=== PATIENT | male | born 1950 | race Caucasian/White ===

== ENCOUNTER 2017-01-10 21:07 | Emergency (ER) | payer OTHER ==
[~2017-01-10] VITALS: Ht 193 cm; Wt 103.9 kg
[2017-01-10] MEDS ORDERED: DIPH,PERTUSS(ACELL),TET VAC/PF 0.5 ML IM-VACC ONE ×2 (21:47→22:00)
[2017-01-10] MEDS ORDERED: LIDOCAINE 1%, 20ML ONE (21:47)
[2017-01-10] MEDS ORDERED: LIDOCAINE 1%, 20ML INFIL ONE (22:00)
[2017-01-10] MEDS ORDERED: BACITRACIN ZINC OINT 500U/GM, 0.9 GM ONE (22:07)
[2017-01-10 22:44] VITALS: BP 143/86
== END 2017-01-10 22:48 | disposition home or self-care (01) ==
LOC: ED 22:30
DX: S81.012A Laceration without foreign body, left knee, initial encounter (principal); V19.9XXA Pedal cyclist (driver) (passenger) injured in unspecified traffic accident, initial encounter; Y93.55 Activity, bike riding; Y92.410 Unspecified street and highway as the place of occurrence of the external cause; Y99.8 Other external cause status
CPT/HCPCS: 12032; 73564; 90471; 90715; 99284; J3490

== ENCOUNTER 2020-01-03 21:36 | Inpatient (IN) | payer MEDICARE, OTHER ==
[~2020-01-03] VITALS: Ht 193 cm; Wt 124.5 kg
[2020-01-03 22:42] LABS: MICROSCOPIC INDICATED
--- NOTE | 2020-01-03 22:49 | NUR ---
pt reports coming into ed for painful urination. denies flank pain, states it phipps when he urinates, wakes him out of sleep, pt reports difficulty urinating this past week since this started. denies abdominal pain, NAD, gross neuro intact. pt states "its almost like im on fire down there" pt placed on spo2/bp monitoring. wctm, waiting ua results.
--- NOTE | 2020-01-03 23:11 | NUR ---
PT TO US VIA [facility]. NAD, NO CHANGE IN CONDITION, WCTM.
[2020-01-03 23:26] LABS: ALBUMIN 2.6 g/dL (3.4-5.0); ANION GAP 18 mmol/L (5-15); CALCIUM 8.4 mg/dL (8.5-10.1); CHLORIDE 92 mmol/L (98-107)
[2020-01-03 23:30] LABS: ALANINE AMINOTRANSFERASE 44 U/L (12-78); ALKALINE PHOSPHATASE 129 U/L (45-117); BILIRUBIN,TOTAL 0.9 mg/dL (0.2-1.0); TOTAL PROTEIN 7.9 g/dL (6.4-8.2)
[2020-01-04 00:09] LABS: MEAN PLATELET VOLUME 12.4 fL (7.4-10.4)
--- NOTE | 2020-01-04 00:15 | NUR ---
late entry d/t pt care: pt resting in gurney, appears comfortable, nad, denies additional needs at this time. call light on lap, wctm. pt to be admitted.
[2020-01-04 00:16] LABS: MEAN CORPUSCULAR HGB CONC 33.5 g/dL (33.2-36.2); PLATELET COUNT 252 x10^3/uL (130-400); RED BLOOD COUNT 4.47 x10^6/uL (4.38-5.82); RED CELL DISTRIBUTION WIDTH 15.2 % (9.4-14.8)
[2020-01-04] MEDS ORDERED: HEPARIN 5,000 UNITS/ML, 1ML SQ SCH (00:30)
[2020-01-04] MEDS ORDERED: VANCOMYCIN PER PHARMACY MC PRN (00:30)
[2020-01-04] MEDS ORDERED: SODIUM CHLORIDE FLUSH 10ML SYR IVF ONE ×2 (00:30)
[2020-01-04] MEDS ORDERED: CEFTRIAXONE PMX 1GM/50ML 50 ML IV SCH (00:30)
[2020-01-04] MEDS ORDERED: BISACODYL 10 MG SUPP PR PRN (00:30)
[2020-01-04] MEDS ORDERED: ONDANSETRON ODT 4 MG PO PRN (00:30)
[2020-01-04] MEDS ORDERED: morphine SULFATE 10 MG/ML, 1ML IVPush PRN (00:30)
[2020-01-04] MEDS ORDERED: CEFTRIAXONE PMX 1GM/50ML 50 ML IVPB ONE (00:30)
[2020-01-04] MEDS ORDERED: SODIUM CHLORIDE 0.9% 1,000ML IVBOLUS ONE (00:30)
[2020-01-04] MEDS ORDERED: VANCOMYCIN PMX 1GM/200ML 200 ML IV ONE ×2 (00:30→03:00)
[2020-01-04] MEDS ORDERED: VANCOMYCIN PER PHARMACY MC ONE (00:30)
[2020-01-04] MEDS ORDERED: SODIUM CHLORIDE 0.9% 1,000 ML IV SCH (00:30)
[2020-01-04] MEDS ORDERED: POLYETHYLENE GLYCOL 17 GM PACKET PO PRN (00:30)
[2020-01-04] MEDS ORDERED: HEPARIN 5,000 UNITS/ML, 1ML ONE (00:34)
[2020-01-04] MEDS ORDERED: CEFTRIAXONE PMX 1GM/50ML 50 ML ONE (00:34)
[2020-01-04 00:35] LABS: MD YES
[2020-01-04 00:39] LABS: BAND#(MANUAL) 1.33 x10^3/uL; BANDS%(MANUAL) 4 % (0-7); LYMPH#(MANUAL) 1.66 x10^3/uL (1-3.4); LYMPHS% (MANUAL) 5 % (22-44); MONOS#(MANUAL) 1.99 x10^3/uL (0.3-2.7); MONOS% (MANUAL) 6 % (2-9); SEG#(MANUAL) 28.22 x10^3/uL (1.8-6.8); SEGS% (MANUAL) 85 % (42-75)
[2020-01-04 00:40] LABS: ANISOCYTOSIS 1+
[2020-01-04 00:41] LABS: <PLATELET ESTIMATE> ADEQUATE; TOXIC GRAN 2+
[2020-01-04 00:42] LABS: GIANT PLATELETS 1+; LARGE PLATELETS 1+
--- NOTE | 2020-01-04 00:42 | NUR ---
pt to us via [facility], no change in condition.
[2020-01-04 01:22] LABS: CHLORIDE,URINE RANDOM 26 mmol/L; POTASSIUM,URINE RANDOM 15 mmol/L; SODIUM,URINE RANDOM 40 mmol/L
--- NOTE | 2020-01-04 01:40 | NUR ---
LATE ENTRY: PT POLI, RESTING ON POLI MCRAE, TO BE ADMITTED. WCTM.
--- NOTE | 2020-01-04 02:10 | NUR ---
THIS RN CALLED HEENA HENRIQUEZ TO UPDATE ON PT, PT TO BE TRANSFERRED TO FLOOR, NAD, DENIES ADDITIONAL NEEDS AT THIS TIME. WCTM.
[2020-01-04 02:31] VITALS: BP 145/74
[2020-01-04] MEDS ORDERED: PHARMACOKINETIC MONITORING MC PRN (03:00)
[2020-01-04 03:43] VITALS: BP 135/74
[2020-01-04 06:04] LABS: ANION GAP 19 mmol/L (5-15); CALCIUM 8.2 mg/dL (8.5-10.1); CHLORIDE 95 mmol/L (98-107); CREATININE 3.52 mg/dL (0.7-1.3); MEAN CORPUSCULAR HEMOGLOBIN 31.2 pg (27.5-34.5); MEAN CORPUSCULAR HGB CONC 33.3 g/dL (33.2-36.2); MEAN PLATELET VOLUME 10.2 fL (7.4-10.4); PLATELET COUNT 274 x10^3/uL (130-400); RED BLOOD COUNT 4.57 x10^6/uL (4.38-5.82); RED CELL DISTRIBUTION WIDTH 15.5 % (9.4-14.8)
[2020-01-04 06:35] LABS: MD YES
[2020-01-04 06:36] LABS: ANISOCYTOSIS 1+; BANDS%(MANUAL) 5 % (0-7); LYMPH#(MANUAL) 1.44 x10^3/uL (1-3.4); LYMPHS% (MANUAL) 6 % (22-44); MONOS#(MANUAL) 0.72 x10^3/uL (0.3-2.7); MONOS% (MANUAL) 3 % (2-9); MYELOCYTES# (MANUAL) 0.24 x10^3/uL (0-0); MYELOCYTES% (MANUAL) 1 % (0-0); SEGS% (MANUAL) 85 % (42-75)
[2020-01-04 06:37] LABS: PMNS WITH VACUOLES 1+; TOXIC GRAN 2+
[2020-01-04 06:47] LABS: <PLATELET ESTIMATE> ADEQUATE; LARGE PLATELETS 1+
[2020-01-04 08:00] VITALS: BP 110/74
[2020-01-04] MEDS: SENNA/DOCUSATE TABLET PO SCH (09:00)
[2020-01-04] MEDS: CEFTRIAXONE PMX 2GM/50ML 50 ML IV SCH (09:31)
[2020-01-04 14:00] VITALS: BP 131/62
[2020-01-04 20:08] VITALS: BP 134/69
[2020-01-04 20:22] VITALS: BP 120/66
[2020-01-04 22:32] LABS: OSMOLALITY,URINE 284 mOsm/kg (500-850)
[2020-01-05 01:31] VITALS: BP 144/73
[2020-01-05] MEDS: ACETAMINOPHEN 325 MG TABLET PO PRN ×2 (02:27→20:51)
[2020-01-05] MEDS: SODIUM CHLORIDE 0.9% 1,000 ML IV SCH ×2 (03:28→20:52)
[2020-01-05 05:41] LABS: ANION GAP 13 mmol/L (5-15); CALCIUM 7.7 mg/dL (8.5-10.1); CHLORIDE 104 mmol/L (98-107)
[2020-01-05 05:46] LABS: CREATININE 2.36 mg/dL (0.7-1.3); VANCOMYCIN,RANDOM 5.5 mcg/mL
[2020-01-05 06:12] LABS: MEAN CORPUSCULAR HEMOGLOBIN 30.7 pg (27.5-34.5); MEAN CORPUSCULAR HGB CONC 32.8 g/dL (33.2-36.2); MEAN PLATELET VOLUME 12.3 fL (7.4-10.4); PLATELET COUNT 234 x10^3/uL (130-400); RED BLOOD COUNT 4.05 x10^6/uL (4.38-5.82); RED CELL DISTRIBUTION WIDTH 15.5 % (9.4-14.8)
[2020-01-05 06:13] LABS: MD YES
[2020-01-05 06:15] LABS: BAND#(MANUAL) 0.22 x10^3/uL; BANDS%(MANUAL) 1 % (0-7); EOS#(MANUAL) 0.22 x10^3/uL (0.0-0.4); EOS% (MANUAL) 1 % (1-7); LYMPH#(MANUAL) 0.88 x10^3/uL (1-3.4); LYMPHS% (MANUAL) 4 % (22-44); MONOS#(MANUAL) 1.11 x10^3/uL (0.3-2.7); MONOS% (MANUAL) 5 % (2-9); MYELOCYTES# (MANUAL) 0.22 x10^3/uL (0-0); MYELOCYTES% (MANUAL) 1 % (0-0); SEG#(MANUAL) 19.45 x10^3/uL (1.8-6.8); SEGS% (MANUAL) 88 % (42-75)
[2020-01-05 06:16] LABS: ANISOCYTOSIS 1+; LARGE PLATELETS 1+; PMNS WITH VACUOLES 1+; TOXIC GRAN 1+
[2020-01-05 06:17] LABS: <PLATELET ESTIMATE> ADEQUATE; GIANT PLATELETS 1+
[2020-01-05] MEDS ORDERED: VANCOMYCIN 2,000 MG in SODIUM CHLORIDE 0.9% 500 ML IV ONE (06:30)
[2020-01-05] MEDS ORDERED: POTASSIUM CHLORIDE 20 MEQ TAB.ER.PRT PO ONE (07:00)
[2020-01-05 07:15] VITALS: BP 116/73
[2020-01-05] MEDS: SODIUM BICARBONATE 650 MG TABLET PO SCH ×2 (08:21→20:45)
[2020-01-05] MEDS: SENNA/DOCUSATE TABLET PO SCH (08:21)
[2020-01-05] MEDS: CEFTRIAXONE PMX 2GM/50ML 50 ML IV SCH (09:12)
[2020-01-05 13:03] VITALS: BP 129/70
[2020-01-05] MEDS ORDERED: NALOXONE 1 MG/ML, 2ML ONE (14:40)
[2020-01-05] MEDS ORDERED: FENTANYL PF 100 MCG/2ML ONE (14:40)
[2020-01-05] MEDS ORDERED: LIDOCAINE 1%, 10ML ONE ×2 (14:42→15:33)
[2020-01-05] MEDS ORDERED: VISIPAQUE 270 MG/ML, 50ML BOTTLE ONE (15:41)
[2020-01-05 20:42] VITALS: BP 130/70
[2020-01-05 21:35] VITALS: BP 129/73
[2020-01-06 00:03] VITALS: BP 121/71
[2020-01-06 06:14] LABS: CHLORIDE 108 mmol/L (98-107)
[2020-01-06 06:20] LABS: MEAN CORPUSCULAR HEMOGLOBIN 30.8 pg (27.5-34.5); MEAN PLATELET VOLUME 11.2 fL (7.4-10.4); PLATELET COUNT 282 x10^3/uL (130-400); RED BLOOD COUNT 4.38 x10^6/uL (4.38-5.82); RED CELL DISTRIBUTION WIDTH 15.5 % (9.4-14.8)
[2020-01-06 06:25] LABS: ANION GAP 11 mmol/L (5-15); CREATININE 1.89 mg/dL (0.7-1.3); VANCOMYCIN,TROUGH 14.2 mcg/mL (5.0-10.0)
[2020-01-06 06:57] LABS: BASOPHILS # (AUTO) 0.02 x10^3/uL (0-0.1); BASOPHILS % (AUTO) 0 % (0-1); EOSINOPHILS # (AUTO) 0.06 x10^3/uL (0-0.4); EOSINOPHILS % (AUTO) 0 % (1-7); LYMPHOCYTES # (AUTO) 1.02 x10^3/uL (1-3.4); LYMPHOCYTES % (AUTO) 5 % (22-44); MD SCAN; MONOCYTES # (AUTO) 1.06 x10^3/uL (0.2-0.8); MONOCYTES % (AUTO) 5 % (2-9); NEUTROPHILS # (AUTO) 17.51 x10^3/uL (1.8-6.8); NEUTROPHILS % (AUTO) 89 % (42-75)
[2020-01-06 07:42] VITALS: BP 128/78
[2020-01-06] MEDS: SENNA/DOCUSATE TABLET PO SCH (07:58)
[2020-01-06] MEDS: ACETAMINOPHEN 325 MG TABLET PO PRN ×3 (07:58→21:15)
[2020-01-06] MEDS: SODIUM BICARBONATE 650 MG TABLET PO SCH ×2 (07:59→20:33)
[2020-01-06] MEDS: CEFTRIAXONE PMX 2GM/50ML 50 ML IV SCH (09:39)
[2020-01-06] MEDS: SODIUM CHLORIDE 0.9% 1,000 ML IV SCH (09:39)
[2020-01-06] MEDS: VANCOMYCIN 2,000 MG in SODIUM CHLORIDE 0.9% 500 ML IV SCH (10:44)
[2020-01-06 13:57] VITALS: BP 126/68
[2020-01-06 19:32] VITALS: BP 145/75
[2020-01-07] MEDS: SODIUM CHLORIDE 0.9% 1,000 ML IV SCH ×2 (01:28→23:52)
[2020-01-07 01:52] VITALS: BP 155/70
[2020-01-07 06:29] LABS: MEAN CORPUSCULAR HEMOGLOBIN 31.1 pg (27.5-34.5); MEAN CORPUSCULAR HGB CONC 33.4 g/dL (33.2-36.2); MEAN PLATELET VOLUME 10.6 fL (7.4-10.4); PLATELET COUNT 308 x10^3/uL (130-400); RED BLOOD COUNT 4.25 x10^6/uL (4.38-5.82); RED CELL DISTRIBUTION WIDTH 15.8 % (9.4-14.8)
[2020-01-07 06:49] LABS: CHLORIDE 112 mmol/L (98-107)
[2020-01-07 06:56] LABS: BASOPHILS # (AUTO) 0.06 x10^3/uL (0-0.1); BASOPHILS % (AUTO) 0 % (0-1); EOSINOPHILS # (AUTO) 0.13 x10^3/uL (0-0.4); EOSINOPHILS % (AUTO) 1 % (1-7); LYMPHOCYTES # (AUTO) 1.31 x10^3/uL (1-3.4); LYMPHOCYTES % (AUTO) 8 % (22-44); MD SCAN; MONOCYTES # (AUTO) 0.99 x10^3/uL (0.2-0.8); MONOCYTES % (AUTO) 6 % (2-9); NEUTROPHILS # (AUTO) 14.01 x10^3/uL (1.8-6.8); NEUTROPHILS % (AUTO) 85 % (42-75)
[2020-01-07 06:58] LABS: ANION GAP 8 mmol/L (5-15); CALCIUM 7.9 mg/dL (8.5-10.1); CREATININE 1.61 mg/dL (0.7-1.3)
[2020-01-07 08:35] VITALS: BP 127/68
[2020-01-07] MEDS: CEFTRIAXONE PMX 2GM/50ML 50 ML IV SCH (09:24)
[2020-01-07] MEDS: SODIUM BICARBONATE 650 MG TABLET PO SCH ×2 (09:25→20:19)
[2020-01-07] MEDS: SENNA/DOCUSATE TABLET PO SCH (09:25)
[2020-01-07] MEDS: VANCOMYCIN 2,000 MG in SODIUM CHLORIDE 0.9% 500 ML IV SCH (12:54)
[2020-01-07 13:50] VITALS: BP 146/73
[2020-01-07 19:55] VITALS: BP 172/104
[2020-01-07 19:57] VITALS: BP 151/73
[2020-01-07] MEDS ORDERED: MELATONIN 5 MG TABLET PO PRN (22:00)
[2020-01-08 00:11] VITALS: BP 128/68
[2020-01-08 06:19] LABS: MEAN CORPUSCULAR HEMOGLOBIN 30.7 pg (27.5-34.5); MEAN CORPUSCULAR HGB CONC 32.6 g/dL (33.2-36.2); MEAN PLATELET VOLUME 10.5 fL (7.4-10.4); PLATELET COUNT 295 x10^3/uL (130-400); RED BLOOD COUNT 4.11 x10^6/uL (4.38-5.82); RED CELL DISTRIBUTION WIDTH 15.7 % (9.4-14.8)
[2020-01-08 06:23] LABS: ANION GAP 9 mmol/L (5-15); CHLORIDE 115 mmol/L (98-107); CREATININE 1.38 mg/dL (0.7-1.3)
[2020-01-08 06:44] LABS: BASOPHILS # (AUTO) 0.02 x10^3/uL (0-0.1); BASOPHILS % (AUTO) 0 % (0-1); EOSINOPHILS # (AUTO) 0.09 x10^3/uL (0-0.4); EOSINOPHILS % (AUTO) 1 % (1-7); LYMPHOCYTES # (AUTO) 1.58 x10^3/uL (1-3.4); LYMPHOCYTES % (AUTO) 10 % (22-44); MD SCAN; MONOCYTES % (AUTO) 7 % (2-9); NEUTROPHILS # (AUTO) 12.73 x10^3/uL (1.8-6.8); NEUTROPHILS % (AUTO) 83 % (42-75)
[2020-01-08 08:00] VITALS: BP 146/72
[2020-01-08] MEDS: CEFTRIAXONE PMX 2GM/50ML 50 ML IV SCH (08:00)
[2020-01-08] MEDS: AMLODIPINE 5 MG TABLET PO SCH (08:01)
[2020-01-08] MEDS: SENNA/DOCUSATE TABLET PO SCH (08:01)
[2020-01-08] MEDS: SODIUM BICARBONATE 650 MG TABLET PO SCH ×2 (08:01→20:31)
[2020-01-08] MEDS ORDERED: MAGNESIUM HYDROXIDE 8%, 30ML UDC ONE (09:08)
[2020-01-08 09:55] VITALS: BP 146/64
[2020-01-08] MEDS: VANCOMYCIN 2,000 MG in SODIUM CHLORIDE 0.9% 500 ML IV SCH (12:25)
[2020-01-08] MEDS ORDERED: CHLORHEXIDINE 15 ML UDC MM ONE (14:30)
[2020-01-08] MEDS ORDERED: HYDROmorphone 1 MG/ML, 1ML INJ IVPush PRN (15:00)
[2020-01-08] MEDS ORDERED: hydrALAzine 20 MG/ML, 1ML IV PRN (15:00)
[2020-01-08] MEDS ORDERED: MEPERIDINE/PF 25MG/0.5ML IVPush PRN (15:00)
[2020-01-08] MEDS ORDERED: OXYcodone 5 MG/5 ML ORAL.SOL UDC PO PRN (15:00)
[2020-01-08] MEDS ORDERED: LABETALOL 5MG/ML, 20ML IV PRN (15:00)
[2020-01-08] MEDS ORDERED: FENTANYL PF 100 MCG/2ML IV PRN (15:00)
[2020-01-08] MEDS ORDERED: HALOPERIDOL 5 MG/ML IV PRN (15:00)
[2020-01-08] MEDS ORDERED: PROMETHAZINE 25 MG/ML, 1ML IVPush PRN (15:00)
[2020-01-08] MEDS ORDERED: FENTANYL PF 250 MCG/5ML ONE (15:01)
[2020-01-08] MEDS ORDERED: ROCURONIUM 10MG/ML,5ML ONE (16:06)
[2020-01-08] MEDS ORDERED: SUCCINYLCHOLINE 20 MG/ML, 10ML ONE (16:06)
[2020-01-08] MEDS ORDERED: DEXAMETHASONE 4 MG/ML, 1ML ONE (16:06)
[2020-01-08] MEDS ORDERED: PROPOFOL 10 MG/ML, 20ML ONE (16:06)
[2020-01-08] MEDS ORDERED: GLYCOPYRROLATE 0.2MG/1ML, 5ML ONE (16:06)
[2020-01-08] MEDS ORDERED: ONDANSETRON 2MG/ML, 2ML ONE (16:06)
[2020-01-08] MEDS ORDERED: CEFAZOLIN 1,000 MG ONE (16:06)
[2020-01-08] MEDS ORDERED: NEOSTIGMINE 1 MG/ML, 10ML ONE ×2 (16:06→16:07)
[2020-01-08] MEDS ORDERED: FENTANYL PF 100 MCG/2ML ONE (16:12)
[2020-01-08] MEDS: SODIUM CHLORIDE 0.9% 1,000 ML IV SCH (17:20)
[2020-01-08 20:47] VITALS: BP 136/72
[2020-01-09 00:21] VITALS: BP 137/64
[2020-01-09] MEDS: SODIUM CHLORIDE 0.9% 1,000 ML IV SCH ×3 (02:10→19:43)
[2020-01-09 03:59] VITALS: BP 152/69
[2020-01-09 05:51] LABS: MEAN CORPUSCULAR HEMOGLOBIN 30.3 pg (27.5-34.5); MEAN CORPUSCULAR HGB CONC 31.8 g/dL (33.2-36.2); MEAN PLATELET VOLUME 11.2 fL (7.4-10.4); PLATELET COUNT 327 x10^3/uL (130-400); RED BLOOD COUNT 3.95 x10^6/uL (4.38-5.82); RED CELL DISTRIBUTION WIDTH 16.2 % (9.4-14.8)
[2020-01-09 06:12] LABS: ANION GAP 8 mmol/L (5-15); CALCIUM 7.9 mg/dL (8.5-10.1); CHLORIDE 114 mmol/L (98-107)
[2020-01-09 06:14] LABS: CREATININE 1.23 mg/dL (0.7-1.3)
[2020-01-09 06:43] LABS: BASOPHILS # (AUTO) 0.09 x10^3/uL (0-0.1); BASOPHILS % (AUTO) 1 % (0-1); EOSINOPHILS # (AUTO) 0.05 x10^3/uL (0-0.4); EOSINOPHILS % (AUTO) 0 % (1-7); LYMPHOCYTES # (AUTO) 1.57 x10^3/uL (1-3.4); LYMPHOCYTES % (AUTO) 9 % (22-44); MD SCAN; MONOCYTES # (AUTO) 1.13 x10^3/uL (0.2-0.8); MONOCYTES % (AUTO) 6 % (2-9); NEUTROPHILS # (AUTO) 14.69 x10^3/uL (1.8-6.8); NEUTROPHILS % (AUTO) 84 % (42-75)
[2020-01-09 07:55] VITALS: BP 143/68
[2020-01-09] MEDS: SODIUM BICARBONATE 650 MG TABLET PO SCH ×2 (09:00→21:25)
[2020-01-09] MEDS: AMLODIPINE 5 MG TABLET PO SCH (09:46)
[2020-01-09] MEDS: CEFTRIAXONE PMX 2GM/50ML 50 ML IV SCH (09:46)
[2020-01-09] MEDS: SENNA/DOCUSATE TABLET PO SCH (09:46)
[2020-01-09] MEDS: VANCOMYCIN 2,000 MG in SODIUM CHLORIDE 0.9% 500 ML IV SCH (12:30)
[2020-01-09 13:12] VITALS: BP 127/72
[2020-01-09] MEDS ORDERED: VISIPAQUE 270 MG/ML, 50ML BOTTLE ONE (14:15)
[2020-01-09 20:00] VITALS: BP 136/65
[2020-01-10] MEDS: ACETAMINOPHEN 325 MG TABLET PO PRN ×2 (02:00→08:55)
[2020-01-10 04:00] VITALS: BP 104/65
[2020-01-10 05:35] LABS: BASOPHILS # (AUTO) 0.15 x10^3/uL (0-0.1); BASOPHILS % (AUTO) 1 % (0-1); EOSINOPHILS # (AUTO) 0.13 x10^3/uL (0-0.4); EOSINOPHILS % (AUTO) 1 % (1-7); LYMPHOCYTES # (AUTO) 1.45 x10^3/uL (1-3.4); LYMPHOCYTES % (AUTO) 12 % (22-44); MD NO; MEAN CORPUSCULAR HGB CONC 33.3 g/dL (33.2-36.2); MEAN PLATELET VOLUME 10.4 fL (7.4-10.4); MONOCYTES # (AUTO) 0.69 x10^3/uL (0.2-0.8); MONOCYTES % (AUTO) 6 % (2-9); NEUTROPHILS % (AUTO) 80 % (42-75); PLATELET COUNT 296 x10^3/uL (130-400); RED BLOOD COUNT 3.69 x10^6/uL (4.38-5.82); RED CELL DISTRIBUTION WIDTH 15.1 % (9.4-14.8)
[2020-01-10 05:40] LABS: CHLORIDE 118 mmol/L (98-107)
[2020-01-10 05:44] LABS: ANION GAP 7 mmol/L (5-15); CALCIUM 8.1 mg/dL (8.5-10.1); CREATININE 1.26 mg/dL (0.7-1.3)
[2020-01-10 08:03] VITALS: BP 120/62
[2020-01-10] MEDS: SODIUM BICARBONATE 650 MG TABLET PO SCH ×2 (08:51→21:34)
[2020-01-10] MEDS: SENNA/DOCUSATE TABLET PO SCH (08:55)
[2020-01-10] MEDS: AMLODIPINE 5 MG TABLET PO SCH (08:56)
[2020-01-10] MEDS: CEFTRIAXONE PMX 2GM/50ML 50 ML IV SCH (08:56)
[2020-01-10] MEDS: VANCOMYCIN 2,000 MG in SODIUM CHLORIDE 0.9% 500 ML IV SCH (12:27)
[2020-01-10 14:06] VITALS: BP 126/68
[2020-01-10] MEDS: SODIUM CHLORIDE 0.9% 1,000 ML IV SCH (17:44)
[2020-01-10] MEDS ORDERED: LIDOCAINE 1%, 10ML ONE (18:53)
[2020-01-10 20:26] VITALS: BP 127/69
[2020-01-11 00:34] VITALS: BP 152/76
[2020-01-11 06:53] LABS: BASOPHILS % (AUTO) 1 % (0-1); EOSINOPHILS # (AUTO) 0.07 x10^3/uL (0-0.4); EOSINOPHILS % (AUTO) 1 % (1-7); LYMPHOCYTES # (AUTO) 1.11 x10^3/uL (1-3.4); LYMPHOCYTES % (AUTO) 11 % (22-44); MD NO; MEAN CORPUSCULAR HEMOGLOBIN 30.8 pg (27.5-34.5); MEAN CORPUSCULAR HGB CONC 32.4 g/dL (33.2-36.2); MONOCYTES # (AUTO) 0.56 x10^3/uL (0.2-0.8); MONOCYTES % (AUTO) 6 % (2-9); NEUTROPHILS # (AUTO) 7.94 x10^3/uL (1.8-6.8); NEUTROPHILS % (AUTO) 81 % (42-75); PLATELET COUNT 358 x10^3/uL (130-400); RED BLOOD COUNT 3.88 x10^6/uL (4.38-5.82); RED CELL DISTRIBUTION WIDTH 15.2 % (9.4-14.8)
[2020-01-11 07:27] VITALS: BP 136/76
[2020-01-11] MEDS: CEFAZOLIN PMX 1GM/50ML 50 ML IV SCH ×3 (08:51→23:01)
[2020-01-11] MEDS: SODIUM BICARBONATE 650 MG TABLET PO SCH (09:00)
[2020-01-11] MEDS: SENNA/DOCUSATE TABLET PO SCH (09:00)
[2020-01-11] MEDS: AMLODIPINE 5 MG TABLET PO SCH (11:20)
[2020-01-11] MEDS ORDERED: LIDOCAINE 1%, 20ML ONE (12:12)
[2020-01-11] MEDS ORDERED: FENTANYL PF 100 MCG/2ML ONE (12:16)
[2020-01-11] MEDS ORDERED: FLUMAZENIL 0.1 MG/1 ML, 5ML ONE (12:16)
[2020-01-11] MEDS ORDERED: MIDAZOLAM 1 MG/ML, 5ML ONE (12:16)
[2020-01-11] MEDS ORDERED: NALOXONE 1 MG/ML, 2ML ONE (12:17)
[2020-01-11 13:20] VITALS: BP 132/58
[2020-01-11] MEDS: SODIUM CHLORIDE 0.9% 1,000 ML IV SCH ×2 (14:08→23:01)
[2020-01-11 18:30] VITALS: BP 108/61
[2020-01-12 01:16] VITALS: BP 127/69
[2020-01-12] MEDS: CEFAZOLIN PMX 1GM/50ML 50 ML IV SCH (06:42)
[2020-01-12 09:00] VITALS: BP 101/59
[2020-01-12] MEDS: AMLODIPINE 5 MG TABLET PO SCH (09:00)
[2020-01-12] MEDS: SODIUM CHLORIDE 0.9% 1,000 ML IV SCH (11:58)
[2020-01-12] MEDS: CEFTRIAXONE PMX 2GM/50ML 50 ML IV SCH (11:59)
[2020-01-12 13:40] VITALS: BP 116/51
[2020-01-12] MEDS: SENNA/DOCUSATE TABLET PO SCH (18:40)
[2020-01-12 20:05] VITALS: BP 152/82
[2020-01-13 01:47] VITALS: BP 149/71
[2020-01-13 07:21] VITALS: BP 153/66
[2020-01-13] MEDS: AMLODIPINE 5 MG TABLET PO SCH (07:57)
[2020-01-13] MEDS: SENNA/DOCUSATE TABLET PO SCH (07:57)
[2020-01-13] MEDS ORDERED: AMLODIPINE 5 MG TABLET PO SCH (09:00)
[2020-01-13] MEDS ORDERED: AMLODIPINE 10 MG TAB ONE (09:13)
[2020-01-13] MEDS ORDERED: AMLODIPINE 10 MG TAB PO SCH (09:22)
[2020-01-13] MEDS: CEFTRIAXONE PMX 2GM/50ML 50 ML IV SCH (10:01)
[2020-01-13 13:42] VITALS: BP 120/70
[2020-01-13] MEDS ORDERED: AMLO10TA8 PO (14:58)
[2020-01-13] MEDS ORDERED: CEFT2FRO2 IV (14:58)
== END 2020-01-13 17:10 | disposition home or self-care (01) | DRG 853 ==
LOC: ED 22:06 → EDIP 01-04 00:20 → 4NE 01-04 02:22 → 3N 01-05 12:21 → 4NE 01-08 17:25 → DCLOUNGE 01-13 17:00
PROVIDERS: ADMIT Family Medicine; ATTEND Internal Medicine
PROC: 0T9430Z Drainage of Left Kidney Pelvis with Drainage Device, Percutaneous Approach (ICD-10-PCS; 2020-01-05)
PROC: 0V950ZZ Drainage of Scrotum, Open Approach (ICD-10-PCS; 2020-01-08)
PROC: 0TJB8ZZ Inspection of Bladder, Via Natural or Artificial Opening Endoscopic (ICD-10-PCS; 2020-01-08)
PROC: 0VB08ZX Excision of Prostate, Via Natural or Artificial Opening Endoscopic, Diagnostic (ICD-10-PCS; principal; 2020-01-08 15:30)
PROC: BT121ZZ Fluoroscopy of Left Kidney using Low Osmolar Contrast (ICD-10-PCS; 2020-01-09)
PROC: 0T25X0Z Change Drainage Device in Kidney, External Approach (ICD-10-PCS; 2020-01-11)
PROC: 02HV33Z Insertion of Infusion Device into Superior Vena Cava, Percutaneous Approach (ICD-10-PCS; 2020-01-12)
PROC: B548ZZA Ultrasonography of Superior Vena Cava, Guidance (ICD-10-PCS; 2020-01-12)
PROC: B5181ZA Fluoroscopy of Superior Vena Cava using Low Osmolar Contrast, Guidance (ICD-10-PCS; 2020-01-12)
DX: A41.51 Sepsis due to Escherichia coli [E. coli] (principal); N17.0 Acute kidney failure with tubular necrosis; E87.1 Hypo-osmolality and hyponatremia; E87.2 Acidosis; L03.314 Cellulitis of groin; N13.8 Other obstructive and reflux uropathy; C79.51 Secondary malignant neoplasm of bone; N41.0 Acute prostatitis; N13.6 Pyonephrosis; N43.1 Infected hydrocele; B96.89 Other specified bacterial agents as the cause of diseases classified elsewhere; N40.1 Benign prostatic hyperplasia with lower urinary tract symptoms; K40.91 Unilateral inguinal hernia, without obstruction or gangrene, recurrent; D63.8 Anemia in other chronic diseases classified elsewhere; R33.8 Other retention of urine; I10 Essential (primary) hypertension; Z93.6 Other artificial openings of urinary tract status; Z79.899 Other long term (current) drug therapy
CPT/HCPCS: 36415; 36573; 50431; 50432; 50434; 70450; 71250; 72195; 74176; 76770; 76870; 76942; 80048; 80053; 80202; 81001; 82436; 82570; 83605; 83930; 83935; 84133; 84145; 84153; 84300; 85025; 87015; 87040; 87070; 87075; 87077; 87086; 87102; 87116; 87186; 87205; 87206; 87491; 87591; 87635; 88305; 96372; 99156; 99157; C1894; G0103; G0378; J0690; J0696; J1100; J1644; J2250; J2405; J2704; J2710; J3010; J3370; Q9966; C1729; C1751; C1769; C2625; J0330; J2310; J7030; J7040